=== PATIENT | male | born 1950 | race African-American/Black ===

== ENCOUNTER 2021-05-04 21:52 | Inpatient (IN) | payer OTHER ==
[~2021-05-04] VITALS: Ht 167.6 cm; Wt 90.1 kg
[2021-05-04 22:19] VITALS: BP 118/51
[2021-05-04 23:22] LABS: HEMATOCRIT 36.4 % (42.0-52.0); HEMOGLOBIN 12.3 gm/dL (14.0-18.0); MCH 27.1 pg (26.0-34.0); MCHC 33.8 g/dL (28.0-37.0); PLATELET COUNT 292 thou/uL (150-400); RBC 4.54 mil/uL (4.50-6.00); RDW 14.1 % (10.5-14.5); WBC 26.6 thou/uL (4.0-11.0)
[2021-05-04 23:38] LABS: ANION GAP 11 mmol/L (7-16); BUN 58 mg/dL (7-18); CALCIUM 8.4 mg/dL (8.5-10.1); CHLORIDE 90 mmol/L (98-107); CO2 25 mmol/L (21-32); CREATININE 3.2 mg/dL (0.7-1.3); GLUCOSE 151 mg/dL (74-106); POTASSIUM 4.4 mmol/L (3.5-5.1); SODIUM 126 mmol/L (136-145)
[2021-05-04 23:48] LABS: ALBUMIN 2.6 g/dL (3.4-5.0); DIRECT BILIRUBIN < 0.1 mg/dL (<0.1-0.2); MAGNESIUM 1.3 mg/dL (1.8-2.4); SGOT 32 U/L (15-37); SGPT 27 U/L (16-63); TOTAL PROTEIN 7.5 g/dL (6.4-8.2); TROPONIN-I <0.06 ng/mL (<0.06)
[2021-05-05 00:21] LABS: ABSOLUTE NEUTROPHILS 24.2 thou/uL (1.4-8.2)
[2021-05-05 00:22] LABS: PLATELET ESTIMATE NORMAL
[2021-05-05 00:54] LABS: URINE BILIRUBIN 1+ (Negative); URINE BLOOD 2+ (Negative); URINE CLARITY CLOUDY; URINE COLOR YELLOW; URINE GLUCOSE-RANDOM* NEGATIVE (Negative); URINE KETONES NEGATIVE (Negative); URINE NITRITE-REFLEX NEGATIVE (Negative); URINE PROTEIN (DIPSTICK) 1+ (Negative); URINE SPECIFIC GRAVITY 1.025 (1.005-1.035)
[2021-05-05 00:59] LABS: URINE LEUKOCYTES-REFLEX 3+ (Negative)
[2021-05-05 01:07] LABS: CASTS None Seen /LPF (None Seen); CRYSTALS None Seen /LPF (None Seen); MUCUS 4-6 Moderate strn/LPF (None Seen); SQUAMOUS 0-3 Few /LPF (0-3); WBC CLUMPS Moderate (None Seen)
[2021-05-05 02:11] VITALS: BP 117/57
[2021-05-05 02:38] VITALS: BP 145/69
[2021-05-05 07:28] VITALS: BP 105/55
--- NOTE | 2021-05-05 07:31 | EKG ---
[address] [place] [address] ELECTROCARDIOGRAM REPORT Name: MARYCRUZ VANG Room #: 453-P ADM IN M.R.#: [id number] Admission: 05/05/21 Attend Phys: Georgia Rivas MD Discharge: Date of : 48 Report #: [id number] [facility] ED Test Date: 2021-05-04 Test Time: 22:07:22 Pat Name: MARYCRUZ VANG Department: Room: [facility] Gender: M [employer] Member: JCHAIERNA : 1950 Requested By: Yvonne Urena Order Number: [id number] MD: Dany Adam Measurements Intervals [place] Rate: 116 P: 40 MD: 132 QRS: 27 QRSD: 99 T: 53 QT: 315 QTc: 438 Interpretive Statements Sinus tachycardia Probable left atrial enlargement Baseline wander in lead(s) V6 No previous ECG available for comparison Electronically Signed On 05-05-2021 7:31:17 CDT by Dany Adam [email or web address] <ELECTRONICALLY SIGNED> By: Dany Adam MD, [facility] 05/05/21 0731 [id number] Dany Adam MD, FACC /EPI
--- NOTE | 2021-05-05 11:03 | NUR ---
Pt is AXOX4. IV in Right AC infusing 126/ml/hr of NS. No c/o pain noted. Pt admitted for UTI. Urine is cloudy. Last BM was on 05/01/21. He is up with assist X1. His WDC's are 26.6. BUN is 58 and Creatinine is 3.2. He is on RA. Lungs are diminished and bowels sounds active. He has been SOB and weak for 5 days. Fall precautiona are in place and bed is in low position. Call light is within reach. Will monitor until end of shift.
--- NOTE | 2021-05-05 14:21 | NUR ---
PT ADMITTED RELATED TO COPD EXACERBATION. CM REVIEWED CHART AND SPOKE WITH CARE TEAM. CM MET WITH PT AT BEDSIDE THIS DAY. PT APPEARED TO BE A&O X4. CM ROLE INTRODUCED. PT INDICATED HE LIVES IN A HOUSE WITH HIS FRIEND AND HER TWO KIDS. PT INDICATED THAT THERE ARE TWO SETS OF 6 STEPS INSIDE. PT INDICATED HE HAS A FWW AT HOME BUT HAD BEEN INDEPEDNENT WITH GAIT AND ADLS HIGH [employer]. PT INDICATED THAT HE SEES A PCP AT [facility] BUT CAN'T RECALL HIS NAME. PT INDICATED HE PLANS TO RETURN HOME ONCE MEDICALLY STABLE. PT HAS CPAP FOR HOME USE. PT ON IV ROCEPHIN AND NEPHROLOGY IS CONSULTED. CM FOLLOWING REGARDING DC PLANNING.
[2021-05-05 15:20] VITALS: BP 131/98
[2021-05-05 20:54] VITALS: BP 106/59
--- NOTE | 2021-05-06 05:58 | NUR ---
ASSUMED CARE OF PT AT SHIFT CHANGE. PT IS AOX3-4 AND LETS. NEEDS BE KNOWN. FALL PRECAUTION IN PLACE. PT DENIED PAIN, NAUSEA OR SOA. ASSESSMENT CHARTED. PT WAS ABLE TO SLEEP PART OF THE SHIFT. VSS AND NO S/S OF ACUTE DISTRESS. WILL CONTINUE TO MONITOR.
[2021-05-06 06:25] LABS: ALBUMIN 2.2 g/dL (3.4-5.0); CALCIUM 7.9 mg/dL (8.5-10.1); PHOSPHORUS 2.5 mg/dL (2.5-4.9)
[2021-05-06 06:34] LABS: CREATININE 1.7 mg/dL (0.7-1.3)
[2021-05-06 07:51] VITALS: BP 118/62
[2021-05-06] MEDS ORDERED: KEFLEX750 MG PO ×2 (11:20→13:38)
[2021-05-06 12:03] LABS: HEMATOCRIT 34.2 % (42.0-52.0); HEMOGLOBIN 11.6 gm/dL (14.0-18.0); MCH 27.1 pg (26.0-34.0); MCV 79.9 fL (80.0-100.0); RBC 4.28 mil/uL (4.50-6.00); RDW 13.8 % (10.5-14.5); WBC 17.7 thou/uL (4.0-11.0)
[2021-05-06 13:28] VITALS: BP 118/62
[2021-05-06 13:29] VITALS: BP 118/62
--- NOTE | 2021-05-06 13:45 | NUR ---
PT ASSESSED AT START OF SHIFT. DOING MUCH BETTER AND FEELS BETTER. URINE CLEAR YELLOW. EATING AND DRINKING WELL. GAIT STEADY. DISCHARGING HOME AT THIS TIME W/ ALL BELONGINGS AND WILL F/U W/ PRIMARY
== END 2021-05-06 15:32 | disposition home or self-care (01) | DRG 871 ==
LOC: ER 21:52 → 4W 05-05 01:46 → EROBS 05-05 01:46 → 4W 05-05 02:23
PROVIDERS: Emergency Medicine; Hospitalist; ADMIT Hospitalist; ATTEND Hospitalist
DX: A41.9 Sepsis, unspecified organism (principal); N17.0 Acute kidney failure with tubular necrosis; E43 Unspecified severe protein-calorie malnutrition; N39.0 Urinary tract infection, site not specified; N17.9 Acute kidney failure, unspecified; E87.1 Hypo-osmolality and hyponatremia; R65.20 Severe sepsis without septic shock; E86.0 Dehydration; G47.33 Obstructive sleep apnea (adult) (pediatric); J44.9 Chronic obstructive pulmonary disease, unspecified; N18.9 Chronic kidney disease, unspecified; E11.22 Type 2 diabetes mellitus with diabetic chronic kidney disease; Z60.2 Problems related to living alone; R53.81 Other malaise; R63.4 Abnormal weight loss; G47.00 Insomnia, unspecified; B96.20 Unspecified Escherichia coli [E. coli] as the cause of diseases classified elsewhere; B96.1 Klebsiella pneumoniae [K. pneumoniae] as the cause of diseases classified elsewhere; Z85.46 Personal history of malignant neoplasm of prostate; Z82.49 Family history of ischemic heart disease and other diseases of the circulatory system; Z68.32 Body mass index [BMI] 32.0-32.9, adult; Z20.822 Contact with and (suspected) exposure to COVID-19
CPT/HCPCS: 10045